=== PATIENT | male | born 1995 | race African-American/Black ===

== ENCOUNTER 2017-03-24 20:02 | Emergency (ER) | payer OTHER, MEDICAID ==
[~2017-03-24] VITALS: Ht 182.9 cm; Wt 109.0 kg
[2017-03-24] MEDS ORDERED: LEVETIRACETAM 1,000 MG in SODIUM CHLORIDE 0.9% 100 ML IV ONE (22:00)
[2017-03-24 22:19] LABS: BASOPHILS % 0.4 % (0.0-2.0); HEMATOCRIT. 46.5 % (42.0-52.0); HEMOGLOBIN. 16.3 g/dL (14.0-18.0); LYMPHOCYTES % 12.3 % (20.0-50.0); MEAN CORPUSCULAR HEMOGLOBIN 31.9 pg (28.0-32.0); MEAN CORPUSCULAR VOLUME 90.9 fL (80.0-94.0); MEAN PLATELET VOLUME 7.9 fl (7.4-10.4); MONOCYTES % 6.1 % (2.0-8.0); NEUTROPHILS % 80.2 % (40.0-76.0); PLATELET 225 x1000/uL (130-400); RED BLOOD CELL COUNT 5.12 mill/uL (4.7-6.1); RED CELL DISTRIBUTION WIDTH 12.9 % (11.6-14.6)
[2017-03-24 22:29] LABS: CARBON DIOXIDE 29 mEq/L (21-32); CHLORIDE 103 mEq/L (98-107); ETHANOL BLOOD < 10 mg/dL
[2017-03-24 22:35] VITALS: BP 140/80
[2017-03-24 22:42] LABS: CLARITY URINE CLEAR (CLEAR); COLOR URINE YELLOW (YELLOW); GLUCOSE URINE NEGATIVE (NEGATIVE); KETONES URINE NEGATIVE (NEGATIVE); LEUKOCYTE ESTERASE URINE NEGATIVE (NEGATIVE); NITRITE URINE NEGATIVE (NEGATIVE); OCCULT BLOOD URINE NEGATIVE (NEGATIVE); PH URINE 5.5 (4.5-8.0); PROTEIN URINE TRACE (NEGATIVE); UROBILINOGEN URINE 0.2 E.U./dL (0.2-1.0)
[2017-03-24 22:54] LABS: *AMPHETAMINES SCREEN URINE NEGATIVE (NEGATIVE); *BARBITURATES SCREEN URINE NEGATIVE (NEGATIVE); *BENZODIAZEPINES SCREEN URINE NEGATIVE (NEGATIVE); *COCAINE SCREEN URINE PRESUMTIVE POSITIVE (NEGATIVE); CANNABINOID URINE SCREEN PRESUMTIVE POSITIVE (NEGATIVE); METHADONE URINE SCREEN NEGATIVE (NEGATIVE); OPIATES URINE SCREEN NEGATIVE (NEGATIVE); PHENCYCLIDINE URINE SCREEN NEGATIVE (NEGATIVE)
== END 2017-03-25 00:30 | disposition home or self-care (01) ==
LOC: ER 20:02
DX: R56.9 Unspecified convulsions (principal); F12.10 Cannabis abuse, uncomplicated; F14.10 Cocaine abuse, uncomplicated; F17.210 Nicotine dependence, cigarettes, uncomplicated
CPT/HCPCS: 36415; 70450; 80053; 80305; 81001; 85025; 96365; 99285; 99406; G0482; J1953; J7050

== ENCOUNTER 2020-08-24 12:20 | Emergency (ER) | payer OTHER, MEDICAID ==
[~2020-08-24] VITALS: Ht 188 cm; Wt 109.0 kg
[2020-08-24] MEDS ORDERED: LEVETIRACETAM 500MG TABLET PO ONE (13:15)
[2020-08-24] MEDS ORDERED: KETOROLAC 60MG/2ML VIAL IM ONE (13:15)
[2020-08-24 14:42] VITALS: BP 125/75
== END 2020-08-24 14:54 | disposition home or self-care (01) ==
LOC: ER 12:41
DX: G40.909 Epilepsy, unspecified, not intractable, without status epilepticus (principal); S00.511A Abrasion of lip, initial encounter; S00.512A Abrasion of oral cavity, initial encounter; X58.XXXA Exposure to other specified factors, initial encounter; Y93.89 Activity, other specified; Y92.89 Other specified places as the place of occurrence of the external cause; Y99.8 Other external cause status
CPT/HCPCS: 82962; 96372; 99283; J1885